=== PATIENT | female | born 2000 | race American Indian/Alaskan Native ===

== ENCOUNTER 2022-05-29 06:55 | Inpatient (IN) | payer MEDICAID ==
[2022-05-29] MEDS ORDERED: LACTATED RINGERS 1,000 ML ONE (08:08)
[2022-05-29] MEDS ORDERED: CARBOPROST TROMETHAMINE 250 MCG/1 ML INJ IM PRN (09:00)
[2022-05-29] MEDS ORDERED: fentaNYL 100 MCG/2 ML INJ IV PRN (09:00)
[2022-05-29] MEDS ORDERED: NalbUPHINE 10 MG/1 ML INJ IV PRN (09:00)
[2022-05-29] MEDS ORDERED: ACETAMINOPHEN 325 MG TAB PO PRN (09:00)
[2022-05-29] MEDS ORDERED: LOPERAMIDE 2 MG CAP PO PRN (09:00)
[2022-05-29] MEDS ORDERED: TERBUTALINE 1 MG/1 ML INJ SUB-Q PRN (09:00)
[2022-05-29] MEDS ORDERED: LACTATED RINGERS 1,000 ML IV SCH (09:00)
[2022-05-29] MEDS ORDERED: OXYTOCIN 10 UNIT/1 ML INJ IM PRN (09:00)
[2022-05-29] MEDS ORDERED: LIDOCAINE (2%) 20 MG/1 ML VIAL 20 ML MDV INFILTRATI SCH (09:00)
[2022-05-29] MEDS ORDERED: OXYTOCIN DRIP 30 UNITS/500 ML BAG IV SCH ×2 (09:00)
[2022-05-29] MEDS ORDERED: miSOPROStol 200 MCG TAB PR PRN (09:00)
[2022-05-29] MEDS ORDERED: MINERAL OIL 30 ML ORAL LIQD PO PRN (09:00)
[2022-05-29] MEDS ORDERED: ePHEDrine SULFATE 50 MG/1 ML INJ IV PRN (09:00)
[2022-05-29] MEDS ORDERED: METHYLERGONOVINE MALEATE 0.2 MG/ML VIAL IM PRN (09:00)
[2022-05-29] MEDS ORDERED: AMPICILLIN/NS 2 GM/100 ML 2 GM/100 ML BAG IV SCH (09:00)
[2022-05-29] MEDS ORDERED: BUTORPHANOL 2 MG/1 ML INJ IV PRN (09:00)
[2022-05-29 12:00] LABS: Basophils % (Auto) 0.4 % (0.0-1.8); Eosinophils % (Auto) 0.2 % (0.0-4.3); Hemoglobin 8.3 gm/dl (10.1-14.3); Lymphocytes # (Auto) 1.1 K/mm3 (1.2-5.4); Lymphocytes % (Auto) 14.6 % (13.4-35.0); Mean Corpuscular HGB Conc 31 % (30-34); Mean Corpuscular Volume 65 fl (79-97); Monocytes # (Auto) 0.7 K/mm3 (0.0-0.8); Monocytes % (Auto) 8.8 % (0.0-7.3); Platelet Count 119 K/mm3 (140-440); Red Blood Count 4.13 M/mm3 (3.65-5.03)
[2022-05-29] MEDS ORDERED: ONDANSETRON 4 MG/2 ML INJ ONE (12:52)
[2022-05-29] MEDS ORDERED: AMPICILLIN/NS 1 GM/50 ML 1 GM/50 ML BAG IV SCH (13:00)
[2022-05-29] MEDS: BUTORPHANOL 2 MG/1 ML INJ IV PRN ×2 (13:00→15:12)
--- NOTE | 2022-05-29 15:17 | History and Physical Report ---
History of Present Illness Date of examination: 05/29/22 Date of admission: 05/29/22 06:56 Chief complaint: My water broke at 5:30 AM today; Fluid is clear History of present illness: No Records; Care With Dr. Chow. States course is uncomplicated. States she is GBS Positive. Past History Past Medical History: no pertinent history Past Surgical History: no surgical history Family/Genetic History: hypertension (Father) Social history: no significant social history, single - Obstetrical History Expected Date of Delivery: 05/27/22 Actual Gestation: 40 Week(s) 2 Day(s) : 4 Para: 2 Hx # Term Pregnancies: 2 Induced : 1 Number of Living Children: 2 #1 Gender: Male year: Birthweight: 6 kg Method of Delivery: Vaginal Complications: transfusion (blood after PP Hemorrhage) #2 Infant Gender: Female year: Birthweight: 3.175 kg Method of Delivery: Vaginal Medications and Allergies Allergies Allergy/AdvReac Type Severity Reaction Status Date / Time No Known Allergies Allergy Unverified 05/29/22 07:36 Home Medications Medication Instructions Recorded Confirmed Last Taken Type Vit-Fe Fumar-FA [ 1 tab PO QDAY 05/29/22 05/29/22 05/26/22 History Vitamin] 1 tab Active Meds: Active Medications Acetaminophen (Acetaminophen 325 Mg Tab) 650 mg PO Q4H PRN PRN Reason: Pain, Mild (1-3) Butorphanol Tartrate (Butorphanol 2 Mg/1 Ml Inj) 1 mg IV Q2H PRN PRN Reason: Pain, Moderate(4-6) LABOR PAIN Butorphanol Tartrate (Butorphanol 2 Mg/1 Ml Inj) 2 mg IV Q2H PRN PRN Reason: Pain , Severe (7-10) Last Admin: 05/29/22 13:00 Dose: 2 mg Carboprost Tromethamine (Carboprost Tromethamine 250 Mcg/1 Ml Inj) 250 mcg IM ONCE PRN PRN Reason: Uterine Bleeding Ephedrine Sulfate (Ephedrine Sulfate 50 Mg/1 Ml Inj) 10 mg IV Q2M PRN PRN Reason: Hypotension Fentanyl (Fentanyl 100 Mcg/2 Ml Inj) 100 mcg IV Q2H PRN PRN Reason: Pain,Severe (7-10) LABOR PAIN Oxytocin/Sodium Chloride (Pitocin/Ns 30 Unit/500ml) 30 units in 500 mls @ 2 mls/hr IV TITR MEHRAN; Protocol Lactated Ringer's (Lactated Ringers) 1,000 mls @ 125 mls/hr IV DIRECT MEHRAN Oxytocin/Sodium Chloride (Pitocin/Ns 30 Unit/500ml) 30 units in 500 mls @ 40 mls/hr IV TITR MEHRAN; Protocol Ampicillin Sodium (Ampicillin/Ns 1 Gm/50 Ml) 1 gm in 50 mls @ 100 mls/hr IV Q4H MEHRAN; Protocol Last Admin: 05/29/22 14:43 Dose: 100 mls/hr Lidocaine (Lidocaine (2%) 20 Mg/1 Ml Vial 20 Ml Mdv) 20 ml INFILTRATI ONCE@0900 MEHRAN Stop: 05/30/22 08:59 Loperamide HCl (Loperamide 2 Mg Cap) 2 mg PO ONCE PRN PRN Reason: give with Hemabate Methylergonovine Maleate (Methylergonovine Maleate 0.2 Mg/Ml Vial) 0.2 mg IM ONCE PRN PRN Reason: Uterine Bleeding Mineral Oil (Mineral Oil 30 Ml Oral Liqd) 30 ml PO QHS PRN PRN Reason: Constipation Misoprostol (Misoprostol 200 Mcg Tab) 800 mcg [place] ONCE PRN PRN Reason: Uterine Bleeding Nalbuphine HCl (Nalbuphine 10 Mg/1 Ml Inj) 10 mg IV Q2H PRN PRN Reason: Pain, Moderate (4-6) Oxytocin (Oxytocin 10 Unit/1 Ml Inj) 10 unit IM ONCE PRN PRN Reason: Uterine Bleeding Terbutaline Sulfate (Terbutaline 1 Mg/1 Ml Inj) 0.25 mg SUB-Q ONCE PRN PRN Reason: Hyperstimulation/Hypertonicity Review of Systems All systems: negative - Vital Signs Vital signs: Vital Signs Pulse BP Pulse Ox 133 H 110/73 100 05/29/22 07:46 05/29/22 07:46 05/29/22 07:46 Temp Pulse Resp BP Pulse Ox 98.4 F 95 H 16 147/85 98 05/29/22 07:55 05/29/22 15:05 05/29/22 13:00 05/29/22 14:22 05/29/22 15:05 - Physical Exam Breasts: Positive: normal Cardiovascular: Regular rate Lungs: Positive: Clear to auscultation, Normal air movement Abdomen: Positive: normal appearance, soft, normal bowel sounds Genitourinary (Female): Positive: normal external genitalia, normal perenium Vagina: Positive: normal moisture Uterus: Positive: enlarged Anus/Rectum: Positive: normal perianal skin - Obstetrical FHR: category 1 Uterine Contraction Monitor Mode: External Cervical Dilatation: 8 (leaking clear fluid) Cervical Effacement Percentage: 90 station: -1 Uterine Contraction Pattern: Regular Uterine Tone Measurement Phase: Resting Uterine Contraction Intensity: Moderate Results Result Diagrams: 05/29/22 10:57 Abnormal lab results 05/29/22 Range/Units 10:57 Hgb 8.3 L (10.1-14.3) gm/dl Hct 27.0 L (30.3-42.9) % MCV 65 L (79-97) fl MCH 20 L (28-32) pg RDW 21.0 H (13.2-15.2) % Plt Count 119 L (140-440) K/mm3 [place] % (Auto) 8.8 H (0.0-7.3) % Lymph # (Auto) 1.1 L (1.2-5.4) K/mm3 Seg Neutrophils % 76.0 H (40.0-70.0) % All other labs normal. Assessment and Plan A: IUP @40 2/7 Weeks Category I Tracing SROM Active Labor GBS Positive P: Admit to L&D per Routine Orders Pitocin Augmentation GBS Prophylaxis Re request records from Dr. Chow
[2022-05-29 15:55] LABS: Hepatitis C Virus Antibody Non-Reactive (NonReactive)
[2022-05-29] MEDS ORDERED: miSOPROStol 200 MCG TAB ONE (16:20)
--- NOTE | 2022-05-29 16:50 | Procedure Note ---
OB Delivery Note - Delivery Date of Delivery: 05/29/22 (7'10) Surgeon: JYOTHI LIU [employer] Equipment Operator: STEPHAN VILLA Estimated blood loss: other (350) - Vaginal Delivery presentation: vertex Delivery position: OA Delivery induction: none Delivery augmentation: pitocin Delivery monitor: external FHT, external uterine Route of delivery: Delivery placenta: spontaneous Delivery cord: 3 umbilical vessels Episiotomy: none Delivery laceration: none Anesthesia: none Delivery comments: of a live 7'10 female over a intact perineum under IV pain control with Apgars of 8 and 9 at 1612 on 05/29/2022. Infant directly to maternal abd/chest, skin to skin contact. Spontaneous delivery of placenta complete and intact with [place] side presenting at 1615. Fundus is firm and midline located 4 below the U. Delayed cord clamping and cutting; Cord cut by the Father of the Baby. 1000mcg of Cytotec placed per rectum due to hx of 2 PP Hemorraghes Bladder emptied with In and out Cath. (100cc of urine voided). Lochia is scant.
[2022-05-29] MEDS ORDERED: LANOLIN/ZINC/DIMETHICONE (LANSINOH) 7 GM TP PRN (17:00)
[2022-05-29] MEDS ORDERED: diphenhydrAMINE 25 MG CAP PO PRN (17:00)
[2022-05-29] MEDS ORDERED: WITCH HAZEL/ GLYCERIN PAD TP PRN (17:00)
[2022-05-29] MEDS ORDERED: PROMETHAZINE 25 MG TAB PO PRN (17:00)
[2022-05-29] MEDS: HYDROcodone/ACETAMINOPHEN 5-325 MG TAB PO PRN (21:33)
[2022-05-29 23:06] LABS: Amphetamine Screen,Urine PRESUMPTIVE NEGATIVE; Benzodiazepines Screen,Urine PRESUMPTIVE NEGATIVE; Cannabinoid Screen,Urine PRESUMPTIVE NEGATIVE; Cocaine Screen,Urine PRESUMPTIVE NEGATIVE; Methadone Screen,Urine PRESUMPTIVE NEGATIVE; Opiate Screen,Urine PRESUMPTIVE NEGATIVE
[2022-05-30 04:24] LABS: Hematocrit 22.9 % (30.3-42.9)
[2022-05-30] MEDS ORDERED: SODIUM CHLORIDE 0.9% 500 ML 500 ML IV ONE (06:14)
[2022-05-30] MEDS: HYDROcodone/ACETAMINOPHEN 5-325 MG TAB PO PRN ×2 (06:20→14:42)
[2022-05-30] MEDS ORDERED: SODIUM CHLORIDE 0.9% 500 ML 500 ML IV SCH (08:00)
[2022-05-30] MEDS ORDERED: ACETAMINOPHEN 325 MG TAB PO NR (08:00)
[2022-05-30 10:01] LABS: Mean Corpuscular HGB Conc 29 % (30-34); Red Blood Count 3.53 M/mm3 (3.65-5.03)
[2022-05-30 10:03] LABS: Mean Corpuscular Volume 67 fl (79-97); Platelet Count 101 K/mm3 (140-440); Red Cell Distribution Width 21.3 % (13.2-15.2)
--- NOTE | 2022-05-30 12:46 | Progress Note ---
Assessment and Plan PPD#1 with symphysis pubic tenderness, symptomatic anemia and worsening thrombocytopenia and suprapubic tenderness 1. Will give oral augmentin bid 2. Will get hip xray 2 views to rule out pubic diastases 3. will repeat CBC 4hrs after the 2nd unit, and hold 3rd unit for now. Will transfuse 3rd unit if pt remains symptomatic 4. May have percocet prn pain. All questions encouraged and answered. Shared decision making with pt done con cerning her plan of care. Subjective Date of service: 05/30/22 Principal diagnosis: PPD#1 Interval history: pt receiving 2nd unit of blood when I entered the room, no sign out received concerning this event. pt states that she was told that she would be getting 3 units. pt denies headache, dizziness or palpitations. Pt was sitting with her legs hanging from the bed and states she could not lift her legs to the bed due to severe pain in her pubic area. Pt states her last delivery only was PPH. Objective - Constitutional Vitals: Vital Signs - 12hr 05/30/22 05/30/22 05/30/22 05:20 08:10 08:11 Temperature 98.3 F 98.6 F Pulse Rate 96 H 102 H 122 H Respiratory 20 16 16 Rate Blood Pressure 117/68 Blood Pressure 114/64 [Left] O2 Sat by Pulse 100 98 99 Oximetry 05/30/22 05/30/22 05/30/22 08:32 08:47 09:17 Temperature 98 F 98 F 98.2 F Pulse Rate 101 H 94 H 86 Respiratory 16 16 16 Rate Blood Pressure 117/68 110/64 113/72 Blood Pressure [Left] O2 Sat by Pulse 98 98 Oximetry 05/30/22 05/30/22 05/30/22 09:39 10:33 10:36 Temperature 98.2 F 98.2 F Pulse Rate 81 85 84 Respiratory 18 16 Rate Blood Pressure 100/64 113/72 111/62 Blood Pressure [Left] O2 Sat by Pulse 99 98 98 Oximetry 05/30/22 05/30/22 12:01 12:15 Temperature 98.4 F 98.4 F Pulse Rate 71 70 Respiratory 20 18 Rate Blood Pressure 99/58 99/58 Blood Pressure [Left] O2 Sat by Pulse 98 Oximetry General appearance: Present: no acute distress - Neck Neck: normal ROM - Respiratory Respiratory effort: normal - Breasts Breasts: deferred - Cardiovascular Rhythm: other (now with mild tacchycardia) Extremities: No edema - Gastrointestinal General gastrointestinal: Present: soft, non-tender - Genitourinary Female genitourinary: other (fundus with mild tenderness at 1cm below umbilicus and severe pubic tenderness. Lochia moderate) - Integumentary Integumentary: warm, dry - Neurologic Neurologic: moves all extremities - Psychiatric Psychiatric: cooperative - Labs CBC & Chem 7: 05/30/22 04:08 Labs: Abnormal lab results 05/29/22 05/30/22 Range/Units 08:24 04:08 RBC 3.53 L (3.65-5.03) M/mm3 Hgb 7.0 L (10.1-14.3) gm/dl Hct 22.9 L (30.3-42.9) % MCV 67 L (79-97) fl MCH 20 L (28-32) pg MCHC 29 L (30-34) % RDW 21.3 H (13.2-15.2) % Plt Count 101 L (140-440) K/mm3 Crossmatch See Detail Medications & Allergies - Medications Allergies/Adverse Reactions: Allergies No Known Allergies Allergy (Unverified 05/29/22 07:36) Home Medications: Home Medications Medication Instructions Recorded Confirmed Last Taken Type Vit-Fe Fumar-FA [ 1 tab PO QDAY 05/29/22 05/29/22 05/26/22 History Vitamin] 1 tab Active Medications: Generic Name Dose Route Start Last Admin Trade Name Freq PRN Reason Stop Dose Admin Acetaminophen 650 mg 05/30/22 08:00 05/30/22 07:55 Acetaminophen 325 Mg Tab PO 05/30/22 23:00 650 mg ONCE NR Administration Hydrocodone Bitart/Acetaminophen 2 each 05/29/22 17:00 05/30/22 06:20 Hydrocodone/Acetaminophen 5-325 Mg Tab PO 2 each Q6H PRN Administration Pain, Moderate (4-6) Bisacodyl 10 mg 05/29/22 17:00 Bisacodyl 10 Mg Rect Supp NE BID PRN Constipation Diphenhydramine HCl 25 mg 05/29/22 17:00 05/30/22 07:55 Diphenhydramine 25 Mg Cap PO 25 mg Q6H PRN Administration Itching Sodium Chloride 500 mls @ 50 mls/hr 05/30/22 08:00 Nacl 0.9% 500 Ml IV 05/30/22 17:59 DIRECT MEHRAN Multi-Ingredient Ointment 1 applic 05/29/22 17:00 Lanolin/Zinc/Dimethicone (Lansinoh) 7 Gm TP PRN PRN Sore Nipples Promethazine HCl 25 mg 05/29/22 17:00 Promethazine 25 Mg Tab PO Q6H PRN Nausea And Vomiting Sodium Chloride 10 ml 05/29/22 17:00 Sodium Chloride 0.9% 10 Ml Flush Syringe IV 06/03/22 16:59 PRN NR Witch Vanessa/Glycerin 1 each 05/29/22 17:00 Witch Vanessa/ Glycerin Pad TP PRN PRN Hemorrhoid/cleansing/soothing
--- NOTE | 2022-05-30 14:31 | XRay Report ---
XR pelvis 1-2V INDICATION: pubic diastase, vag del 05/30; can't lift feet sitt COMPARISON: None. FINDINGS/IMPRESSION: There is a 1.5 cm of pubic symphysis diastases. No fracture. Signer Name: Alexy Dunham MD Signed: 05/30/2022 2:27 PM Workstation Name: [facility]
[2022-05-30] MEDS: AMOXICILLIN/K CLAV 875/125MG TAB PO SCH (14:42)
[2022-05-30 18:33] LABS: Basophils # (Auto) 0.1 K/mm3 (0.0-0.1); Basophils % (Auto) 0.6 % (0.0-1.8); Eosinophils # (Auto) 0.1 K/mm3 (0.0-0.4); Eosinophils % (Auto) 0.8 % (0.0-4.3); Hematocrit 32.1 % (30.3-42.9); Hemoglobin 10.2 gm/dl (10.1-14.3); Lymphocytes # (Auto) 2.2 K/mm3 (1.2-5.4); Mean Corpuscular HGB Conc 32 % (30-34); Mean Corpuscular Volume 71 fl (79-97); Monocytes # (Auto) 1.1 K/mm3 (0.0-0.8); Monocytes % (Auto) 11.1 % (0.0-7.3); Red Blood Count 4.51 M/mm3 (3.65-5.03)
[2022-05-30 18:36] LABS: Red Cell Distribution Width 24.5 % (13.2-15.2)
[2022-05-30 18:40] LABS: Platelet Count 110 K/mm3 (140-440)
[2022-05-31] MEDS: AMOXICILLIN/K CLAV 875/125MG TAB PO SCH (00:47)
[2022-05-31] MEDS: HYDROcodone/ACETAMINOPHEN 5-325 MG TAB PO PRN (06:23)
--- NOTE | 2022-05-31 08:45 | Discharge Summary ---
Providers - Providers Date of Admission: 05/29/22 06:56 Date of discharge: 05/31/22 Attending physician: JORDON GANNON MD Primary care physician: JORDON GANNON MD Hospitalization Reason for admission: rupture of membranes Delivery: Episiotomy: none Laceration: none complications: transfusion (anemia prior to delivery, 2 Units PRBC's) Discharge diagnosis: IUP at term delivered baby: female Condition at discharge: Good Disposition: 01 HOME / SELF CARE / HOMELESS Plan - Provider Discharge Summary Activity: routine, no sex for 6 weeks, no strenuous exercise Diet: routine Instructions: routine Additional instructions: [] Smoking cessation referral if applicable(refer to patient education folder for contact #) [] Refer to [facility]'s [facility] Booklet Call your doctor immediately for: * Fever > 100.5 * Heavy vaginal bleeding ( >1 pad per hour) * Severe persistent headache * Shortness of breath * Reddened, hot, painful area to leg or breast * Drainage or odor from incision. * Keep incision clean and dry at all times and follow doctor's instructions regarding bathing/showering - Follow up plan Follow up: JORDON GANNON MD [Primary Care Provider] - 6 Weeks
--- NOTE | 2022-05-31 08:45 | Progress Note ---
Assessment and Plan O: H&H now 10.2 and 32.1 after 2 units of PRBC's A: PPD# 2 - stable P: Discharge home today Discharge instructions given Subjective - Subjective Date of service: 05/31/22 Principal diagnosis: PPD#2 Patient reports: appetite normal : doing well Objective - Vital Signs Latest vital signs: Vital Signs Temp Pulse Resp BP Pulse Ox Pulse Ox 05/31/22 06:59 18 05/31/22 06:23 20 05/30/22 20:00 100 05/30/22 15:35 98.6 F 85 20 103/57 98 05/30/22 12:39 98 F 77 18 101/72 05/30/22 12:15 98.4 F 70 18 99/58 05/30/22 12:01 98.4 F 71 20 99/58 98 05/30/22 10:36 98.2 F 84 16 111/62 98 05/30/22 10:33 98.2 F 85 18 113/72 98 05/30/22 09:39 81 100/64 99 05/30/22 09:17 98.2 F 86 16 113/72 05/30/22 08:47 98 F 94 H 16 110/64 98 Intake and Output 05/30/22 05/31/22 05/31/22 22:59 06:59 14:59 Intake Total 360 360 Balance 360 360 Intake: Oral 360 Intake, Free Water 360 Other: Total, Intake Amount 360 # Voids Void 1 1 - Exam Breasts: Present: deferred Cardiovascular: Present: Regular rate Lungs: Present: Clear to auscultation Abdomen: Present: soft Vulva: both: normal Uterus: Present: fundal height below umbilicus Extremities: Present: normal Deep Tendon Reflex Grade: Normal +2 - Labs Labs: Abnormal lab results 05/29/22 05/30/22 05/30/22 Range/Units 08:24 04:08 18:08 RBC 3.53 L (3.65-5.03) M/mm3 Hgb 7.0 L (10.1-14.3) gm/dl Hct 22.9 L (30.3-42.9) % MCV 67 L 71 L (79-97) fl MCH 20 L 23 L (28-32) pg MCHC 29 L (30-34) % RDW 21.3 H 24.5 H (13.2-15.2) % Plt Count 101 L 110 L (140-440) K/mm3 [place] % (Auto) 11.1 H (0.0-7.3) % [place] # (Auto) 1.1 H (0.0-0.8) K/mm3 Crossmatch See Detail
[2022-05-31 11:49] LABS: Basophils % (Auto) 0.3 % (0.0-1.8); Eosinophils # (Auto) 0.2 K/mm3 (0.0-0.4); Eosinophils % (Auto) 1.7 % (0.0-4.3); Hematocrit 33.9 % (30.3-42.9); Hemoglobin 10.7 gm/dl (10.1-14.3); Lymphocytes # (Auto) 2.2 K/mm3 (1.2-5.4); Lymphocytes % (Auto) 24.7 % (13.4-35.0); Mean Corpuscular HGB Conc 31 % (30-34); Mean Corpuscular Volume 71 fl (79-97); Monocytes # (Auto) 0.8 K/mm3 (0.0-0.8); Monocytes % (Auto) 9.4 % (0.0-7.3); Red Blood Count 4.79 M/mm3 (3.65-5.03)
[2022-05-31 11:50] LABS: Platelet Count 125 K/mm3 (140-440); Red Cell Distribution Width 23.8 % (13.2-15.2)
[2022-05-31 13:28] VITALS: BP 113/65
== END 2022-05-31 13:48 | disposition home or self-care (01) | DRG 775 ==
LOC: TRG 06:55 → APU 06:56 → TRG 08:44 → LD 13:40 → OB 18:34
PROVIDERS: ADMIT Obstetrics & Gynecology Gynecology; ATTEND Obstetrics & Gynecology Gynecology
PROC: 10E0XZZ Delivery of Products of Conception, External Approach (ICD-10-PCS; principal; 2022-05-29)
PROC: 30233N1 Transfusion of Nonautologous Red Blood Cells into Peripheral Vein, Percutaneous Approach (ICD-10-PCS; 2022-05-30)
DX: O99.02 Anemia complicating childbirth (principal); O99.12 Other diseases of the blood and blood-forming organs and certain disorders involving the immune mechanism complicating childbirth; Z3A.40 40 weeks gestation of pregnancy; Z37.0 Single live birth; Z20.822 Contact with and (suspected) exposure to COVID-19; D69.6 Thrombocytopenia, unspecified; O99.824 Streptococcus B carrier state complicating childbirth
CPT/HCPCS: 36415; 72170; 80307; 85014; 85018; 85025; 85027; 86592; 86706; 86762; 86803; 86850; 86900; 86901; 86920; 87806; 96360; 96361; 96365; 96366; 96374; 96376; G0378; J0290; J0595; J2405; J2590; J7040; J7120; P9016; U0003